=== PATIENT | male | born 1990 | race Caucasian/White ===

== ENCOUNTER 2017-08-22 02:21 | Emergency (ER) | payer BC | END 2017-08-22 04:41 | disposition left against medical advice (07) | LOC: ERS 02:21 | DX: Z53.21 Procedure and treatment not carried out due to patient leaving prior to being seen by health care provider (principal) ==

== ENCOUNTER 2018-09-19 20:00 | Emergency (ER) | payer BC | END 2018-09-19 20:12 | disposition left against medical advice (07) | LOC: ERS 20:00 | DX: Z53.21 Procedure and treatment not carried out due to patient leaving prior to being seen by health care provider (principal) ==

== ENCOUNTER 2018-09-19 20:33 | Emergency (ER) | payer OTHER ==
[2018-09-19 22:11] LABS: #Basophils 0.1 thou/uL (0.0-0.2); #Eosinphils 0.1 thou/uL (0.0-0.7); #Lymphocytes 1.7 thou/uL (1.20-3.40); #Monocytes 0.4 thou/uL (0.11-0.59); #Neutrophils 3.4 thou/uL (1.40-6.50); %Basophils 1.4 % (0.0-1.0); %Eosinophils 2.6 % (0.0-10.0); %Lymphocytes 30.1 % (21.0-51.0); %Neutrophils 58.8 % (42.0-75.0); Hemoglobin 14.7 g/dL (14.0-18.0); Mean Corpuscular HGB CONC 34.6 g/dL (32.0-36.0); Mean Corpuscular Hemoglobin 29.7 pg (27.0-31.0); Mean Corpuscular Volume 85.9 fL (78.0-98.0); Mean Platelet Volume 11.3 fL (7.4-10.4); Platelet Count 148 thou/uL (130-400); RBC Distribution Width 11.9 % (11.5-14.5); Red Blood Cell (RBC) Count 4.94 mill/uL (4.70-6.10); White Blood Cell (WBC) Count 5.7 thou/uL (4.8-10.8)
[2018-09-19 22:16] LABS: PTT 28.9 SEC (22.9-36.1); Prothrombin Time 12.8 SEC (12.0-14.7)
[2018-09-19 22:25] LABS: ALT (SGPT) 43 U/L (8-55); AST (SGOT) 60 U/L (5-34); Albumin 4.5 g/dL (3.5-5.0); Alkaline Phosphatase 94 U/L (40-150); Anion Gap 13 mmol/L (10-20); BUN (Urea Nitrogen) 10 mg/dL (8.9-20.6); Bilirubin, Total 0.4 mg/dL (0.2-1.2); Calc. Creatinine Clearance 0 mL/min (70-130); Calcium 9.9 mg/dL (7.8-10.44); Carbon Dioxide 24 mmol/L (22-29); Chloride 108 mmol/L (98-107); Estimated GFR-MDRD 87; Globulin 2.9 g/dL (2.4-3.5); Glucose 99 mg/dL (70-105); Potassium 4.2 mmol/L (3.5-5.1); Protein, Total 7.4 g/dL (6.0-8.3); Sodium 141 mmol/L (136-145)
== END 2018-09-19 22:51 | disposition home or self-care (01) ==
LOC: SCSER 20:33
DX: K62.5 Hemorrhage of anus and rectum (principal); K64.4 Residual hemorrhoidal skin tags
CPT/HCPCS: 80053; 85025; 85610; 85730; 99283

== ENCOUNTER 2018-10-12 07:49 | Day surgery (SDC) | payer OTHER ==
[2018-10-11 12:18] VITALS: BMI 23.6
[2018-10-12] MEDS ORDERED: cefOXitin 2 GM VIAL ONE (08:11)
[2018-10-12] MEDS ORDERED: Sodium Chloride 0.9% 100 ML ONE (08:12)
[2018-10-12 08:57] LABS: Mean Corpuscular HGB CONC 33.4 g/dL (32.0-36.0); Mean Corpuscular Hemoglobin 29.5 pg (27.0-31.0); Mean Corpuscular Volume 88.2 fL (78.0-98.0); Mean Platelet Volume 8.9 fL (7.4-10.4); Platelet Count 157 thou/uL (130-400); RBC Distribution Width 11.6 % (11.5-14.5); Red Blood Cell (RBC) Count 4.74 mill/uL (4.70-6.10)
[2018-10-12 09:11] LABS: Anion Gap 10 mmol/L (10-20); BUN (Urea Nitrogen) 11 mg/dL (8.9-20.6); Calc. Creatinine Clearance 143 mL/min (70-130); Carbon Dioxide 26 mmol/L (22-29); Chloride 106 mmol/L (98-107); Estimated GFR-MDRD Greater than 90; Glucose 91 mg/dL (70-105); Potassium 3.5 mmol/L (3.5-5.1); Sodium 138 mmol/L (136-145)
[2018-10-12] MEDS ORDERED: Ondansetron PF 4 MG/2 ML Vial ONE (10:26)
[2018-10-12] MEDS ORDERED: diphenhydrAMINE 50 MG/ML VIAL ONE (10:26)
[2018-10-12] MEDS ORDERED: ePHEDrine 50 MG/ML VIAL ONE (10:26)
[2018-10-12] MEDS ORDERED: Dexamethasone 20 MG/5 ML VIAL ONE (10:26)
[2018-10-12] MEDS ORDERED: PROPOFOL 200 MG/20 ML VIAL ONE (10:26)
[2018-10-12] MEDS ORDERED: Ketorolac Tromethamine 30 MG/ML VIAL ONE (10:26)
[2018-10-12] MEDS ORDERED: Lidocaine 1% PF 5 ML VIAL ONE (10:26)
[2018-10-12] MEDS ORDERED: Succinylcholine Chloride 20 MG/ML 10 ml SYRINGE FS ONE (10:26)
[2018-10-12] MEDS ORDERED: Lidocaine 2% PF 5 ML VIAL ONE (10:46)
[2018-10-12] MEDS ORDERED: Bupivacaine/Epinephrine 0.25% 30 ML VIAL ONE ×2 (10:46→12:05)
[2018-10-12] MEDS ORDERED: Fentanyl 100 MCG/2 ML VIAL ONE (10:54)
[2018-10-12] MEDS ORDERED: Lidocaine 2% Jelly 5 ML TUBE ONE (12:17)
--- NOTE | 2018-10-13 12:48 | OP ---
DATE OF PROCEDURE: 10/12/2018 PROCEDURE: Open hemorrhoidectomy on 10/12/2018. PREOPERATIVE DIAGNOSIS: Combined internal and external hemorrhoids. POSTOPERATIVE DIAGNOSIS: Combined internal and external hemorrhoids. HISTORY: Mr. Goodwin is a 27-year-old man with a longstanding history of severe symptomatic internal and external hemorrhoids with pain and bleeding. Open hemorrhoidectomy was recommended because of the large external hemorrhoids. DESCRIPTION OF PROCEDURE: After informed consent was obtained and appropriate preoperative antibiotics administered, the patient was taken to the operating room and he was placed in supine position and general anesthesia was administered. He was then placed in lithotomy position and prepped and draped in standard sterile fashion. was carried out. He had a very large underlying internal and external hemorrhoid with stigmata of recent bleeding in the right posterior location and a moderate to large left posterior hemorrhoid bundle which was primarily internal but with a moderate external component. No significant hemorrhoidal disease was identified, was made to incorporate the large right posterior hemorrhoidal bundle, which was incised using LigaSure. The incision was then closed with a running locking 0 chromic suture leaving the external portion open to drain. The left posterior hemorrhoid was then removed in an identical manner. Hemostasis was verified and local anesthesia infused circumferentially for postoperative pain control. A Gelfoam gauze with lidocaine jelly external dressing. The patient was extubated, and taken to recovery in good condition. ESTIMATED BLOOD LOSS: Minimal. COMPLICATIONS: There were no complications. SPECIMENS: External hemorrhoids fragments. Job ID: [id number]
== END 2018-10-12 15:12 | disposition home or self-care (01) ==
LOC: SDC 07:49
PROVIDERS: ATTEND Surgery
PROC: 06BY0ZC Excision of Hemorrhoidal Plexus, Open Approach (ICD-10-PCS; principal; 2018-10-12)
DX: K64.4 Residual hemorrhoidal skin tags (principal); K64.8 Other hemorrhoids; Z88.0 Allergy status to penicillin
CPT/HCPCS: 80048; 85027; 88304; J0131; J0694; J1100; J1200; J1885; J2001; J2405; J2704; J3010; J3490